=== PATIENT | female | born 1980 | race Caucasian/White ===

== ENCOUNTER 2016-03-22 11:17 | Emergency (ER) | payer MEDICAID ==
[~2016-03-22] VITALS: Ht 167.6 cm; Wt 57.7 kg
[~2016-03-22 11:17] MED LIST: CEFU1TAB43 PO; CLON.1 PO; FLAG500T PO; HYDR-2768 PO; METH2.5 PO; PERC5TAB12 PO; PRED20 PO; TRAM50 PO
[2016-03-22 11:21] VITALS: BP 155/98; PULSE 96; RESP 16; TEMP 97.6; O2SAT 99
[2016-03-22] MEDS ORDERED: ACETAMINOPHEN/HYDROcodone 325 MG/7.5 MG TAB PO ONE (12:30)
[2016-03-22] MEDS ORDERED: ORPHENADRINE INJ 60 MG/2 ML AMP IM ONE (12:30)
[2016-03-22] MEDS ORDERED: TRAM50TA PO (12:31)
[2016-03-22] MEDS ORDERED: DIAZ5 PO (12:31)
--- NOTE | 2016-03-22 12:38 | PD ---
HPI Chief Complaint: Musculoskeletal Complaint Time Seen by Provider: 12:31 Travel History International Travel<30 days: No Contact w/Intl Traveler<30days: No Traveled to known affect area: No History of Present Illness HPI Patient is a 35-year-old female with a history of lupus presenting with left posterior shoulder and neck pain. Was in for 11 days. She denies any trauma or injury. States that his sharp and achy and worse with movement and touch. It is over the distribution of the trapezius. Denies any midline pain. States occasionally she has some numbness over the back of the shoulder on the left but denies any paresthesias or weakness in extremities. She denies any history of trauma to the neck or neck surgeries. She denies any fevers or headaches. She was using icy hot, heat, ice, Flexeril, ibuprofen and Tylenol with minimal relief. She denies current . PFSH Past Medical History Autoimmune Disease: Yes (Lupus) Cardiovascular Problems: Yes (HTN) Diminished Hearing: No Hypertension: Yes Immune Disorder: Yes (lupus) Respiratory: Yes (ASTHMA) Tetanus Vaccination: > 5 Years Influenza Vaccination: No ?: Unknown LMP: 03/14/16 Dilation and Curettage (D&C): Yes Past Surgical History Surgical History: No Previous Surgery Social History Alcohol Use: No Tobacco Use: Yes (Occ.) Substance Use: No Allergies-Medications (Allergen,Severity, Reaction): Coded Allergies: Iodine (Verified Allergy, Severe, Hives, 03/22/16) Reported Meds & Prescriptions Reported Meds & Active Scripts Active Ultram (Tramadol HCl) 50 Mg Tab 50 Mg PO Q6 PRN Percocet 5-325 mg (Oxycodone/Acetaminophen) 1 Tab 1 Tab PO Q6H PRN Flagyl (Metronidazole) 500 Mg Tab 500 Mg PO BID 10 Days Ceftin 500 Mg Tab (Cefuroxime Axetil) 500 Mg Tab 500 Mg PO BID 7 Days Reported Hctz (Hydrochlorothiazide) 25 Mg Tab 25 Mg PO DAILY Catapres 0.1 mg (Clonidine HCl) 0.1 Mg Tab 1 Tab PO DAILY Deltasone 20 Mg Tab (Prednisone) 20 Mg Tab 20 Mg PO DAILY Rheumatrex (Methotrexate) 2.5 Mg Tab 10 Mg PO WEEKLY Review of Systems Except as stated in HPI: all other systems reviewed are Neg Physical Exam Narrative GENERAL: Well-developed and well-nourished adult female in no acute distress. SKIN: Warm and dry. Good turgor without tenting. HEAD: Normocephalic and atraumatic. EYES: PERRL bilaterally, 5mm. EOMI bilaterally. No injection or icterus present. No proptosis. Lids without edema or erythema. ENT: Buccal mucosa pink and moist. Oropharynx free of erythema, tonsillar hypertrophy, masses, swelling, asymmetry and exudates. Uvula midline and airway patent. NECK: Supple, no midline tenderness, crepitus or step-offs. Normal range of motion. She does have pain with palpation of the left posterior paracervical strap muscles as well as the mid upper trapezius which is an active spasm. Trachea midline, no JVD. No cervical or facial lymphadenopathy. CARDIOVASCULAR: Regular rate and rhythm without murmurs, rubs, clicks or gallops. Radial pulses 2+ bilaterally. Capillary refill less than 2 seconds distal to the of all fingers of left hand. RESPIRATORY: Clear to auscultation bilaterally with symmetrical rise and fall, no distress or use of accessory muscles. MUSCULOSKELETAL: Left upper trapezius is an active spasm per above. Has no edema or erythema or warmth. No ecchymosis. Normal range of motion in the left shoulder. No gait disturbances. Patient freely moving all four extremities spontaneously. Extremities without clubbing, cyanosis, or edema. No obvious deformities. NEUROLOGIC: CN II-XII grossly intact. Awake and alert. Strength 5/5 bilateral shoulder flexion, shoulder extension, shoulder abduction, shoulder adduction, elbow flexion, elbow extension. Sensation intact C2 through C8 bilaterally.negative bilateral Jocelyne sign. Normal speech. PSYCHIATRIC: Appropriate mood and affect; insight and judgment normal. Data Data Last Documented VS Vital Signs Date Time Temp Pulse Resp B/P Pulse Ox O2 Delivery O2 Flow Rate FiO2 03/22/16 11:21 97.6 96 16 155/98 99 Orders Acetamin-Hydrocod 325-7.5 Mg ([place] 7.5 (03/22/16 12:30) Orphenadrine Inj (Norflex Inj) (03/22/16 12:30) MDM Medical Decision Making Medical Screen Exam Complete: Yes Emergency Medical Condition: Yes Differential Diagnosis Cervical spasm versus trapezial spasm versus cervical radiculopathy Narrative Course Patient is a 35-year-old female with a history of lupus presenting with history and physical suggestive of trapezius and paracervical muscle spasm. She is an active spasm on exam. She also fairly good range of motion in the neck and shoulder. She is neurovascularly intact. Given the muscle spasm and lack of injury or significant radiculopathy signs do not believe there is any need for emergent workup for radiculopathy at this time. She was given Norflex and Lortab here and a prescription for tramadol and Valium as she has tried and failed one muscle relaxer. Recommend massage, heat application and follow-up with PCP.See discharge paperwork for further instructions. The plan was discussed with the patient who acknowledged their understanding and agreement. Reinforced the follow-up with primary care is critically important. Patient instructed on emergent conditions that should prompt return to ED. Diagnosis Primary Impression: Cervical paraspinal muscle spasm Additional Impression: Trapezius muscle spasm Patient Instructions: Cervical Neck Strain Exercises (GEN), General Instructions, Muscle Spasm (ED), Narcotic given in the ED Additional Instructions: Rest for 24 hours, then gradually resume normal activity Avoid maneuvers or positions that aggravate the pain Avoid twisting/bending or lifting heavy items Take medications as prescribed Your medications may cause drowsiness. Do not take with alcohol or sedatives. Do not operate a motor vehicle or heavy machinery while on medication. Performed neck exercises per attached handout Warm, moist heat applied to painful areas hourly as needed Try to massage and stretch affected muscles after applying heat to speed recovery Follow-up with PCP in 1-2 days Return to ED for any acute worsening of symptoms Med/Other Pt SpecificInfo: Prescription(s) given Scripts Diazepam (Valium)5 Mg Tab5 Mg PO TID PRN (SPASM) #15 TAB Ref 0 Prov:Terry Zendejas MD 03/22/16 Tramadol 50 Mg Tab50 Mg PO Q6H PRN (PAIN) #15 TAB Ref 0 Prov:Terry Zendejas MD 03/22/16 Disposition: 01 DISCHARGE HOME Condition: Stable Tyrone Nixon III Mar 22, 2016 12:38
== END 2016-03-22 13:07 | disposition home or self-care (01) ==
LOC: PHEFT 11:17
DX: M62.838 Other muscle spasm (principal)
CPT/HCPCS: 96372; 99283; J2360

== ENCOUNTER 2016-05-06 09:31 | Emergency (ER) | payer MEDICAID ==
[~2016-05-06] VITALS: Ht 167.6 cm; Wt 56.8 kg
[~2016-05-06 09:31] MED LIST changes: +DIAZ5 PO; +TRAM50TA PO
[2016-05-06 09:38] VITALS: BP 150/75; PULSE 80; RESP 16; TEMP 98.2; O2SAT 98
[2016-05-06] MEDS ORDERED: PRED20 PO (10:05)
[2016-05-06] MEDS ORDERED: METH2.5T PO (10:05)
[2016-05-06] MEDS ORDERED: CLON0.1T PO (10:05)
[2016-05-06] MEDS ORDERED: DYAZ37.5 PO (10:05)
[2016-05-06] MEDS ORDERED: CLIN1CAP5 PO (10:10)
[2016-05-06] MEDS ORDERED: BACT2OIN TOPICAL (10:10)
--- NOTE | 2016-05-06 10:10 | PD ---
HPI Chief Complaint: Skin Problem Time Seen by Provider: 09:52 Travel History International Travel<30 days: No Contact w/Intl Traveler<30days: No Traveled to known affect area: No History of Present Illness HPI 35 years old female complains of painful lesions on the face. Patient started having infected rash on the right side of the face and the jaw for the past week and a half. Patient states that she has some mild burning pain in the right-sided jaw with that. Patient has history of MRSA infection in the past. Patient denies any IV drug abuse. Patient states that she is up-to-date with TD booster. PFSH Past Medical History Autoimmune Disease: Yes (Lupus) Cardiovascular Problems: Yes (htn on meds) Diminished Hearing: No Hypertension: Yes Immune Disorder: Yes (lupus) Respiratory: Yes (asthma as a child) ?: Not LMP: 05/05/16 Dilation and Curettage (D&C): Yes Social History Alcohol Use: No Tobacco Use: Yes (Occ.) Substance Use: No Allergies-Medications (Allergen,Severity, Reaction): Coded Allergies: Contrast Media (Verified Allergy, Severe, Anaphylaxis, 05/06/16) Reported Meds & Prescriptions Reported Meds & Active Scripts Active Valium (Diazepam) 5 Mg Tab 5 Mg PO TID PRN Tramadol (Tramadol HCl) 50 Mg Tab 50 Mg PO Q6H PRN Ultram (Tramadol HCl) 50 Mg Tab 50 Mg PO Q6 PRN Percocet 5-325 mg (Oxycodone/Acetaminophen) 1 Tab 1 Tab PO Q6H PRN Flagyl (Metronidazole) 500 Mg Tab 500 Mg PO BID 10 Days Ceftin 500 Mg Tab (Cefuroxime Axetil) 500 Mg Tab 500 Mg PO BID 7 Days Reported Hctz (Hydrochlorothiazide) 25 Mg Tab 25 Mg PO DAILY Catapres 0.1 mg (Clonidine HCl) 0.1 Mg Tab 1 Tab PO DAILY Deltasone 20 Mg Tab (Prednisone) 20 Mg Tab 20 Mg PO DAILY Rheumatrex (Methotrexate) 2.5 Mg Tab 10 Mg PO WEEKLY Review of Systems General / Constitutional: No: Fever Eyes: No: Visual changes HENT: No: Headaches Cardiovascular: No: Chest Pain or Discomfort Respiratory: No: Shortness of Breath Gastrointestinal: No: Abdominal Pain Genitourinary: No: Dysuria Musculoskeletal: No: Pain Skin: No Rash Neurologic: No: Weakness Psychiatric: No: Depression Endocrine: No: Polydipsia Hematologic/Lymphatic: No: Easy Bruising Physical Exam Narrative GENERAL: Well-nourished, well-developed patient. SKIN: Warm and dry. HEAD: Normocephalic. EYES: No scleral icterus. No injection or drainage. NECK: Supple, trachea midline. No JVD or lymphadenopathy. CARDIOVASCULAR: Regular rate and rhythm without murmurs, gallops, or rubs. RESPIRATORY: Breath sounds equal bilaterally. No accessory muscle use. GASTROINTESTINAL: Abdomen soft, non-tender, nondistended. MUSCULOSKELETAL: No cyanosis, or edema. BACK: Nontender without obvious deformity. No CVA tenderness. Patient has several crusted lesions on the right side of face the jaw area submandibular area. Mild redness and tenderness associated with the lesions. No induration noted. No discharge noted. Data Data Last Documented VS Vital Signs Date Time Temp Pulse Resp B/P Pulse Ox O2 Delivery O2 Flow Rate FiO2 05/06/16 09:38 98.2 80 16 150/75 98 MDM Medical Decision Making Medical Screen Exam Complete: Yes Emergency Medical Condition: Yes Differential Diagnosis Differential diagnosis including impetigo, cellulitis, abscess. Narrative Course 35 years old female with infected lesions on the face. Diagnosis Primary Impression: Facial cellulitis Patient Instructions: General Instructions Additional Instructions: Take medications as directed. Follow-up with personal physician. Return if worse. Med/Other Pt SpecificInfo: Prescription(s) given Scripts Clindamycin 150 Mg Cap2 Tab PO Q6H #80 CAP Prov:Ronald Estes MD 05/06/16 Mupirocin Topical (Bactroban Topical)2% Oint1 Appl TOPICAL BID #1 TUBE Ref 0 Prov:Ronald Estes MD 05/06/16 Disposition: 01 DISCHARGE HOME Condition: Stable Ronald Estes MD May 06, 2016 10:10
== END 2016-05-06 10:24 | disposition home or self-care (01) ==
LOC: PHED 09:31
DX: L03.211 Cellulitis of face (principal); I10 Essential (primary) hypertension; Z72.0 Tobacco use; Z86.14 Personal history of Methicillin resistant Staphylococcus aureus infection; Z86.2 Personal history of diseases of the blood and blood-forming organs and certain disorders involving the immune mechanism; Z86.79 Personal history of other diseases of the circulatory system
CPT/HCPCS: 99282